=== PATIENT | male | born 1965 | race Caucasian/White ===

== ENCOUNTER 2018-06-14 09:04 | Day surgery (SDC) | payer OTHER ==
[2018-06-14] MEDS ORDERED: LABETALOL HCL 20MG INJ IV (12:30)
[2018-06-14] MEDS ORDERED: FENTAnyl 50 MCG/ML VIAL IV ×2 (12:30)
[2018-06-14] MEDS ORDERED: EPHEDrine SULFATE 50 MG/5 ML SYG IV (12:30)
[2018-06-14] MEDS ORDERED: LEVALBUTEROL (NEB) 0.63 MG/3 ML AMP HHN (12:30)
[2018-06-14] MEDS ORDERED: morphine (1 MG/ML) 10ML SYRINGE IV ×2 (12:30)
[2018-06-14] MEDS ORDERED: METOCLOPRAMIDE 10 MG INJ IV (12:30)
[2018-06-14] MEDS ORDERED: hydrALAzine 20 MG INJ IV (12:30)
[2018-06-14] MEDS ORDERED: ONDANSETRON 4 MG INJ IV (12:30)
[2018-06-14] MEDS ORDERED: ALBUTEROL 0.083% (NEB) 2.5 MG/3 ML AMP HHN (12:30)
[2018-06-14] MEDS ORDERED: PROPOFOL 100 ML (14:36)
[2018-06-14] MEDS ORDERED: EPHEDrine SULFATE 50 MG/5 ML SYG (14:36)
[2018-06-14] MEDS ORDERED: PHENYLephrine (100 MCG/ML) 5ML SYG (14:41)
== END 2018-06-14 16:09 | disposition home or self-care (01) ==
LOC: GIL 09:04
DX: Z12.11 Encounter for screening for malignant neoplasm of colon (principal); D12.5 Benign neoplasm of sigmoid colon; K62.1 Rectal polyp; K57.31 Diverticulosis of large intestine without perforation or abscess with bleeding; D12.4 Benign neoplasm of descending colon; K29.60 Other gastritis without bleeding
CPT/HCPCS: 43239; 88305; 88312